=== PATIENT | female | born 1945 | race American Indian/Alaskan Native ===

== ENCOUNTER 2016-06-28 15:25 | Inpatient (IN) | payer MEDICARE ==
--- NOTE | 2016-06-28 17:16 | Emergency Department Report ---
ED Chest Pain HPI - General Chief Complaint: Chest Pain Stated Complaint: CHEST PAIN/FAVIAN Time Seen by Provider: 06/28/16 16:50 Source: patient, EMS, old records reviewed Mode of arrival: Stretcher Limitations: No Limitations - History of Present Illness Initial Comments: 71-year-old female with a past medical history of end-stage renal disease on dialysis, CAD with hx of 3 stents and triple bypass, CHF, diabetes, and elevated cholesterol presents to the hospital complains of chest pain while on dialysis. Patient had 55 minutes left of her dialysis and she developed sudden onset of sternal chest pressure. Positive associated shortness of breath. Denies nausea, vomiting, or diaphoresis. Pain moderate in intensity without aggravating or alleviating factors. Painl asted 20 minutes and then resolved when she arrived here to the ED. Patient denies receiving any medications prior to arrival. She states last week she had increased fluid and required an extra dialysis. Patient admits to a lot of soda intake and states she urinates approximately 10 times per day. PMD: Dr. Ming Mccauley cognos bi administrator: Dr. Barone animal care service worker: [facility] heart Previous medical record reviewed. Patient had a cardiac cath 2011. Negative stress test performed 11/2015. Patient was admitted here April 17 until 04/23 and it is recommended that she receive outpatient GI follow-up for possible inferior mesenteric ischemia at that time. Severity scale (0 -10): 5 - Related Data Previous Rx's Medication Instructions Recorded Last Taken Type Clopidogrel Bisulfate [Plavix] 75 mg PO DAILY #30 tablet 05/18/15 1 Day Ago Rx Esomeprazole Magnesium [NexIUM] 40 mg PO QDAY #30 capsule. 05/18/15 1 Day Ago Rx Hydralazine HCl [Apresoline TAB] 100 mg PO BID #90 tablet 05/29/15 1 Day Ago Rx NIFEdipine XL [Procardia Xl] 60 mg PO QDAY #30 tablet 05/29/15 1 Day Ago Rx AtorvaSTATin [Lipitor] 40 mg PO QHS #30 tablet 04/23/16 Unknown Rx Carvedilol [Coreg] 12.5 mg PO BID #60 tablet 04/23/16 Unknown Rx Lisinopril [Zestril TAB] 40 mg PO QDAY #30 tablet 04/23/16 Unknown Rx Allergies Allergy/AdvReac Type Severity Reaction Status Date / Time meperidine HCl [From Demerol] Allergy Vomiting Verified 06/05/14 05:59 JOVANNY score - Jovanny Score Age > 65: (1) Yes Aspirin use within the Past 7 Days: (1) Yes 3 or more CAD Risk Factors: (1) Yes 2 or more Angina events in past 24 hrs: (0) No Known CAD with more than 50% Stenosis: (1) Yes Elevated Cardiac Markers: (0) No ST Deviation Greater than 0.5mm: (0) No JOVANNY Score: 4 ED Review of Systems ROS: Stated complaint: CHEST PAIN/FAVIAN Other details as noted in HPI Comment: All other systems reviewed and negative Other: Constitutional: No fevers chills Eyes: No eye pain visual changes ENT: No ear pain or throat pain Neck: Denies pain Respiratory: Denies cough wheezing Cardiovascular: Denies palpitations, syncope GI: Denies abdominal pain, nausea, vomiting, diarrhea, : Denies dysuria Musculoskeletal: Denies back pain Skin: Denies rash, lesions, erythema Neurologic: Denies headache, numbness, weakness Psychiatric: Denies suicidal ideation, hallucinations ED Past Medical Hx - Past Medical History Hx Hypertension: Yes Hx Heart Attack/AMI: Yes Hx Congestive Heart Failure: No Hx Diabetes: Yes Hx Deep Vein Thrombosis: No Hx Pulmonary Embolism: No Hx GERD: Yes Hx Liver Disease: No Hx Renal Disease: No Hx Sickle Cell Disease: No Hx Arthritis: No Hx Headaches / Migraines: Yes Hx Seizures: No Hx Kidney Stones: No Hx Asthma: No Hx COPD: No Hx Tuberculosis: No Hx Dementia: No Additional medical history: high cholesterol - Surgical History Hx Coronary Stent: No Hx Open Heart Surgery: Yes (CABG 03/24/12) Hx Pacemaker: No Hx Internal Defibrillator: No Hx Cholecystectomy: Yes Additional Surgical History: tubal ligation. hysterectomy. graft - RUE - Social History Smoking Status: Never Smoker Substance Use Type: Marijuana - Medications Home Medications: Home Medications Medication Instructions Recorded Confirmed Last Taken Type Clopidogrel Bisulfate [Plavix] 75 mg PO DAILY #30 tablet 05/18/15 06/28/16 1 Day Ago Rx Esomeprazole Magnesium [NexIUM] 40 mg PO QDAY #30 capsule. 05/18/15 06/28/16 1 Day Ago Rx Hydralazine HCl [Apresoline TAB] 100 mg PO BID #90 tablet 05/29/15 06/28/16 1 Day Ago Rx NIFEdipine XL [Procardia Xl] 60 mg PO QDAY #30 tablet 05/29/15 06/28/16 1 Day Ago Rx AtorvaSTATin [Lipitor] 40 mg PO QHS #30 tablet 04/23/16 06/28/16 Unknown Rx Carvedilol [Coreg] 12.5 mg PO BID #60 tablet 04/23/16 06/28/16 Unknown Rx Lisinopril [Zestril TAB] 40 mg PO QDAY #30 tablet 04/23/16 06/28/16 Unknown Rx ED Physical Exam - General Limitations: No Limitations - Other Other exam information: General: No limitations, patient is alert in no acute distress Head exam: Atraumatic, normocephalic Eyes exam: Normal appearance, pupils equal reactive to light, extraocular movements intact ENT: Moist mucous membrane, normal oropharynx Neck exam: Normal inspection, full range of motion, no meningismus nontender Respiratory exam: Bibasal crackles, no tachypnea or accessory muscle use. Cardiovascular: Normal rate and rhythm, normal heart sounds Abdomen: Soft, nondistended, and nontender, with normal bowel sounds, no rebound, or guarding Extremity: Full range of motion normal inspection no deformity, no calf tenderness or edema Back: Normal Inspection, full range of motion, no tenderness Neurologic: Alert, oriented x3, cranial nerves intact, no motor or sensory deficit Psychiatric: normal affect, normal mood Skin: Warm, dry, intact ED Course Vital Signs 06/28/16 06/28/16 16:15 17:06 Temperature 97.9 F Pulse Rate 56 L Respiratory 16 18 Rate Blood Pressure 191/81 O2 Sat by Pulse 100 99 Oximetry - Reevaluation(s) Reevaluation #1: 06/28/16 18:29 pt stable in ed without recurrent cp - Consultations Consultation #1: 06/28/16 18:29 dr lopez consulted. will f/u Consultation #2: 06/28/16 18:34 Reid consulted (nephrology) Will arrange for dialysis during hospitalization ED Medical Decision Making - Lab Data Result diagrams: 06/28/16 17:05 06/28/16 17:05 Lab Results 06/28/16 06/28/16 06/28/16 Range/Units 16:54 17:05 17:05 WBC 5.1 (4.5-11.0) K/mm3 RBC 3.77 (3.65-5.03) M/mm3 Hgb 10.3 (10.1-14.3) gm/dl Hct 32.6 (30.3-42.9) % MCV 87 (79-97) fl MCH 27 L (28-32) pg MCHC 32 (30-34) % RDW 21.1 H (13.2-15.2) % Plt Count 115 L (140-440) K/mm3 Lymph % (Auto) 28.7 (13.4-35.0) % Wilkin % (Auto) 8.3 H (0.0-7.3) % Eos % (Auto) 3.7 (0.0-4.3) % Baso % (Auto) 0.9 (0.0-1.8) % Lymph # 1.5 (1.2-5.4) K/mm3 Wilkin # 0.4 (0.0-0.8) K/mm3 Eos # 0.2 (0.0-0.4) K/mm3 Baso # 0.0 (0.0-0.1) K/mm3 Seg Neutrophils % 58.4 (40.0-70.0) % Seg Neutrophils # 3.0 (1.8-7.7) K/mm3 Sodium 144 (137-145) mmol/L Potassium 4.3 (3.6-5.0) mmol/L Chloride 97.5 L (98-107) mmol/L Carbon Dioxide 28 (22-30) mmol/L Anion Gap 23 mmol/L BUN 33 H (7-17) mg/dL Creatinine 8.2 H (0.7-1.2) mg/dL Estimated GFR 6 ml/min BUN/Creatinine Ratio 4.02 % Glucose 141 H (65-100) mg/dL POC Glucose 161 H (70-105) Calcium 8.2 L (8.4-10.2) mg/dL Troponin T 0.087 H (0.00-0.029) ng/mL Triglycerides 114 (2-149) mg/dL Cholesterol 171 (50-199) mg/dL LDL Cholesterol Direct 111 (50-130) mg/dL HDL Cholesterol 38 L (40-59) mg/dL Cholesterol/HDL Ratio 4.50 % - EKG Data -: EKG Interpreted by Me (sinus 56 lateral T wave inversions inferior Q) - EKG Data When compared to previous EKG there are: no significant change (compared to ) - Radiology Data Radiology results: image reviewed (cxr: r pleural effusion (since mar 2016 per record review)) - Medical Decision Making Plans admit to the hospital due to chest pain, shortness of breath. Nephrology and cardiology consult - Differential Diagnosis CHF, NH, unstable angina, atypical chest pain Critical Care Time: No Critical care attestation.: If time is entered above; I have spent that time in minutes in the direct care of this critically ill patient, excluding procedure time. ED Disposition Clinical Impression: End stage renal failure on dialysis, Acute chest pain, Pleural effusion, right , HTN (hypertension), S/P CABG x 3, H/O heart artery stent Disposition: OP ADMITTED IP TO THIS HOSP Is pt being admited?: Yes Does the pt Need Aspirin: Yes Condition: Stable Time of Disposition: 18:20 (Dr Menendez/hosp)
[2016-06-28 17:35] LABS: Basophils % (Auto) 0.9 % (0.0-1.8); Eosinophils % (Auto) 3.7 % (0.0-4.3); Hematocrit 32.6 % (30.3-42.9); Hemoglobin 10.3 gm/dl (10.1-14.3); Mean Corpuscular HGB Conc 32 % (30-34); Mean Corpuscular Hemoglobin 27 pg (28-32); Mean Corpuscular Volume 87 fl (79-97); Platelet Count 115 K/mm3 (140-440); Red Blood Count 3.77 M/mm3 (3.65-5.03); White Blood Count 5.1 K/mm3 (4.5-11.0)
[2016-06-28 17:39] LABS: BUN/Creatinine Ratio 4.02; Calcium 8.2 mg/dL (8.4-10.2); Chloride 97.5 mmol/L (98-107); Potassium 4.3 mmol/L (3.6-5.0)
[2016-06-28 17:43] LABS: Red Cell Distribution Width 21.1 % (13.2-15.2)
[2016-06-28] MEDS ORDERED: ASPIRIN PO ONE (18:21)
--- NOTE | 2016-06-28 18:25 | Admit Criteria Form ---
Admission Criteria Documentation: CHEST PAIN Clinical Indications for Admission to Inpatient Care (Place 'X' for any and all applicable criteria): Admission is indicated for chest pain and ANY ONE of the following(1)(2)(3)(4)(5 ): []I. Angina with acute coronary syndrome (Also use Myocardial Infarction or Angina guideline) [ ]II. Hemodynamic instability [X]III. Angina needing acute intervention as indicated by ALL of the following( 11)(12): [X]a) Unstable angina is present as indicated by angina that is ANY ONE of the following: [ ]i) New onset [ ]ii) Nocturnal [X]iii) Prolonged at rest [ ]iv) Progressive [X]b) Angina warrants acute intervention as indicated by ANY ONE of the following: [ ]i) Recurrent angina (e.g, not responding as previously to treatment) [ ]ii) Angina at rest or with low-level activities despite initial medical therapy [ ]iii) New or presumably new ST-segment depression on ECG [ ]iv) Signs or symptoms of heart failure (eg, dyspnea, pulmonary edema) [ ]v) New or worsening mitral regurgitation [ ]vi) Hemodynamic instability [ ]vii) Dangerous arrhythmia (eg, sustained ventricular tachycardia) [ ]viii) History of percutaneous coronary intervention within 6 months [ ]ix) History of coronary artery bypass graft surgery [X]x) CHON risk score of 2 or greater[A] [X]xi) History of Diabetes(14) [ ]xii) High-risk cardiac ischemia findings on noninvasive testing (e.g, echocardiogram, treadmill testing, nuclear scan) [X]xiii) Chronic renal insufficiency (ie, estimated GFR less than 60 mL/min/1.732m) [ ]xiv) Left ventricular ejection fraction less than 40% [X]IV. Evidence of TX (eg, cardiac biomarkers positive, ST-segment elevation on ECG) also use Myocardial Infarction Criteria Form. [ ]V. Pulmonary edema [ ]. Respiratory distress [ ]VII. Chest pain indicative of serious diagnosis other than coronary artery disease (eg, aortic dissection) [ ]VIII. Contraindications and/or Inappropriate clinical situations for Observational Care in patients with Chest Pain, when ANY ONE of the following is required: [ ]a) Patient with risk factor for pulmonary embolism, acute coronary syndrome and myocardial infarction (18) [ ]b) Patient with Pulmonary embolism require an average LOS of 4.3 days, therefore emergency department observation management is inappropriate 18,23 [ ]c) Painful condition/s in the elderly, have the highest rate of recidivism after emergency department observation management (10.8%) 20,21,22 [ ]d) Elevated cardiac biomarker requires intensive and exhaustive care (19) [ ]IX. General contraindications and/or Inappropriate clinical situations for Observational Care in patients with Chest Pain, when ANY ONE of the following is required: [ ]a) Prediction of prolongation of LOS based on ANY ONE of the following may be considered as a contraindication for observational care 2, 3, 4, 5, 6, 7, 8, 9, 10, 11 [ ]i) Age > 65 yrs. [ ]ii) Patient arriving by ambulance [ ]iii) Patient with high acuity [ ]iv) Patient requiring vital sign monitoring [ ]v) Patient on IV medication [ ]b) Systolic blood pressures 180mmHg 3,12 [ ]c) Patient with altered mental status including delirium and other alteration of consciousness, (3) [ ]d) Patient whose discharge disposition will be to a nursing home home or rehabilitation home should not be managed in Emergency Department Observation Unit. CMS rule requires 3 days hospital stay before such placement. 3,13 [ ]e) Patient with failure to thrive due to broad array of etiologies 3,16,17 [ ]f) Inability to ambulate 3,14 Extended stay beyond goal length of stay may be needed for (1)(28): [ ]a) Specific condition diagnosed after evaluation (eg, pulmonary embolism, aortic dissection) [ ]b) Unstable angina [ ]c) Continued suspicion of acute coronary syndrome with inability to complete needed cardiac evaluation (eg, patient clinically unable to undergo stress testing) [ ]d) Myocardial infarction (Contents from ANGINA and CHEST PAIN clinical indications for admission to inpatient care have been integrated in this form) The original [employer] content created by [employer] has been revised. The portions of the content which have been revised are identified through the use of italic text or in bold, and [facility] has neither reviewed nor approved the modified material. All other unmodified content is copyright [facility]. Please see references footnoted in the original [employer] edition 2016 Admission Criteria Met: Yes
[2016-06-28] MEDS: COREG PO SCH (22:59)
--- NOTE | 2016-06-29 08:03 | Event Note ---
Date: 06/28/16 See H/p in reports CP-r/o CA
--- NOTE | 2016-06-29 08:58 | History and Physical Report ---
CHIEF COMPLAINT: Chest pain while at dialysis. HISTORY OF PRESENT ILLNESS: A 71-year-old female with extensive past medical history of end-stage renal disease, coronary artery disease with triple bypass and three stents, CHF, diabetes, and hyperlipidemia, who comes in for chest pain while on dialysis. The patient had 55 minutes left on her dialysis when she developed sudden onset of substernal chest pain associated with shortness of breath. Chest pain is about 5 on a scale of 1-10. Chest pain lasted for about 20 minutes. Did not get any nitroglycerin, etc. prior to arrival. The patient had cardiac catheterization in 2011, negative stress test in November 2015. The patient was admitted as recently as 04/17/2016 to 04/23/2016 and was advised to follow up for inferior mesenteric ischemia at that time. PAST MEDICAL HISTORY: As mentioned, coronary artery disease; gastroesophageal reflux disease; hypertension; and hyperlipidemia. PAST SURGICAL HISTORY: Coronary artery bypass graft. Coronary stents x 3. Cholecystectomy. Tubal ligation, hysterectomy, right upper extremity graft. SOCIAL HISTORY: Does not smoke, marijuana on an intermittent basis. FAMILY HISTORY: Significant for hypertension. CURRENT MEDICATIONS: Plavix 75 mg daily, Nexium 40 mg p.o. daily, hydralazine 100 mg p.o. b.i.d., Procardia 60 mg p.o. daily, atorvastatin 40 mg p.o. daily, Coreg 12.5 mg p.o. b.i.d., and lisinopril 40 mg p.o. daily. REVIEW OF SYSTEMS: Significant for left-sided chest pain. No shortness of breath. Otherwise, 14-point review of systems is essentially negative. All systems reviewed. PHYSICAL EXAMINATION: GENERAL: Elderly female, cooperative during examination. VITAL SIGNS: Blood pressure 191/81, temperature 97.9, pulse is 56, respirations are 16, sats are 100%. HEENT: Unremarkable. Pupils equal and reactive. NECK: Supple, no lymphadenopathy, no thyromegaly. No carotid artery bruit. LUNGS: Clear to auscultation and percussion. Good air entry. CARDIOVASCULAR: S1, S2 heard. No gallop, no murmur, no rub. Apical impulse in left fifth intercostal space and midclavicular line. ABDOMEN: Soft and benign. No hepatosplenomegaly. No guarding, no rigidity. EXTREMITIES: Right upper extremity AV shunt still present. CENTRAL NERVOUS SYSTEM: Alert and oriented x 4, nonfocal exam. SKIN: Normal. LABORATORY DATA: EKG shows heart rate of 56, T-wave inversions in inferior leads. No significant changes compared to 04/18/2016. EKG interpreted by me. Chest x-ray: Pleural effusions, no interval change. A lab significant for white count of 5100, hemoglobin is 10.3 and hematocrit is 32.6, platelet count is 115,000. Sodium is 144, potassium is 4.3, BUN and creatinine of 33 and 8.2. Troponins are 0.089 and 0.076. ASSESSMENT AND PLAN: 1. Chest pain versus acute coronary syndrome. The patient has extensive history of coronary artery disease. Last stress test in November 2015 was negative. I do not expect any change in the stress test, but will get a stress test. Defer to Cardiology for possible cath. 2. End-stage renal disease, on dialysis. Continue dialysis. Dr. Mathews, Nephrology is consulted. 3. Coronary artery disease. [facility] consulted. Continue Plavix. 4. Hypertension. Continue nifedipine 60 mg once a day, Coreg 12.5 mg twice a day, lisinopril 40 mg once a day. 5. Gastroesophageal reflux disease. Continue Nexium 40 mg p.o. daily. 6. DVT prophylaxis, heparin ordered. In summary, the patient has chest pain, rule out myocardial infarction protocol. Possible cath if necessary. We will defer to Cardiology. Lexiscan ordered. Troponins were high, but the patient also has end-stage renal disease which can account for high troponins. JOB# [id number] EH/NORM
[2016-06-29] MEDS: PLAVIX PO SCH (09:00)
[2016-06-29] MEDS: APRESOLINE PO SCH ×2 (09:00→21:37)
[2016-06-29] MEDS ORDERED: SODIUM CHLORIDE FLUSH SYRINGE 10 ML IV PRN (09:00)
[2016-06-29] MEDS: COREG PO SCH ×2 (09:00→21:37)
[2016-06-29] MEDS: PROCARDIA XL PO SCH (09:00)
[2016-06-29] MEDS: PROTONIX PO SCH (09:01)
[2016-06-29] MEDS: LOVENOX SUB-Q SCH (09:01)
[2016-06-29] MEDS: ZESTRIL PO SCH (09:01)
--- NOTE | 2016-06-29 10:32 | XRay Report ---
CHEST 2 VIEWS: Compared to 04/17/16. HISTORY: Shortness of breath, chest pain. FINDINGS: Cardiomegaly. Trachea is midline. Right pleural effusion without significant interval change. IMPRESSION: No significant interval change.
--- NOTE | 2016-06-29 10:49 | Consultation ---
History of Present Illness Consult date: 06/29/16 Consult reason: chest pain History of present illness: Patient is a 71yr old female admitted for chest pain during HD yesterday. Her presenting ECG shows a sinus rhythm with Twave abnomalities and LVH. No significant change from prior ECG. Lab values resulted a troponin of 0.08 likely in the setting of renal disease. Cardiology consultation requested for chest pain. Patient has a cardiac history of CAD s/p 3 way CABG late 2011. The is a WHITE graft to the LAD, SVG to ALOM and SVG to RCA. Patient reports she follows with Dr Keating with [facility] on a regular basis. 6 months ago she had a persantine stress thallium that showed no ischemia. An echocardiogram done 3 months ago reports an ejection fraction 45-50%. Medications and Allergies Allergies Allergy/AdvReac Type Severity Reaction Status Date / Time meperidine HCl [From Demerol] Allergy Vomiting Verified 06/05/14 05:59 Home Medications Medication Instructions Recorded Confirmed Last Taken Type Clopidogrel Bisulfate [Plavix] 75 mg PO DAILY #30 tablet 05/18/15 06/28/16 1 Day Ago Rx Esomeprazole Magnesium [NexIUM] 40 mg PO QDAY #30 capsule. 05/18/15 06/28/16 1 Day Ago Rx Hydralazine HCl [Apresoline TAB] 100 mg PO BID #90 tablet 05/29/15 06/28/16 1 Day Ago Rx NIFEdipine XL [Procardia Xl] 60 mg PO QDAY #30 tablet 05/29/15 06/28/16 1 Day Ago Rx AtorvaSTATin [Lipitor] 40 mg PO QHS #30 tablet 04/23/16 06/28/16 Unknown Rx Carvedilol [Coreg] 12.5 mg PO BID #60 tablet 04/23/16 06/28/16 Unknown Rx Lisinopril [Zestril TAB] 40 mg PO QDAY #30 tablet 04/23/16 06/28/16 Unknown Rx Active Meds: Active Medications Atorvastatin Calcium (Lipitor) [address] [facility] Carvedilol (Coreg) 12.[address] [facility] Last Admin: 06/29/16 09:00 Dose: 12.5 mg Clopidogrel Bisulfate (Plavix) [address] [facility] Last Admin: 06/29/16 09:00 Dose: 75 mg Enoxaparin Sodium (Lovenox) 30 mg SUB-Q QDAY [facility] Last Admin: 06/29/16 09:01 Dose: 30 mg Hydralazine HCl (Apresoline) [address] [facility] Last Admin: 06/29/16 09:00 Dose: 100 mg Hydralazine HCl (Apresoline) 20 mg IV Q4H PRN PRN Reason: Hypertension Lisinopril (Zestril) [address] [facility] Last Admin: 06/29/16 09:01 Dose: 40 mg Nifedipine (Procardia Xl) 60 mg PO QDAY@0800 [facility] Last Admin: 06/29/16 09:00 Dose: 60 mg Pantoprazole Sodium (Protonix) [address] [facility] Last Admin: 06/29/16 09:01 Dose: 40 mg Sodium Chloride (Sodium Chloride Flush Syringe 10 Ml) 10 ml IV PRN PRN PRN Reason: LINE FLUSH Physical Examination Vital Signs Temp Pulse Resp BP Pulse Ox 97.9 F 56 L 16 191/81 100 06/28/16 16:15 06/28/16 16:15 06/28/16 16:15 06/28/16 16:15 06/28/16 16:15 General appearance: no acute distress HEENT: Positive: PERRL Neck: Positive: trachea midline Cardiac: Positive: Reg Rate and Rhythm Lungs: Positive: Decreased Breath Sounds Results 06/28/16 17:05 06/28/16 17:05 Cardiac Enzymes 06/28/16 06/28/16 Range/Units 19:53 23:17 Troponin T 0.089 H 0.076 H (0.00-0.029) ng/mL EKG interpretations - Telemetry EKG Rhythm: Sinus Rhythm Assessment and Plan Chest pain during HD History of CAD s/p CABG 2011. follows with Dr Keating at [facility] No ischemia by MPI 11/2015 Non-specific troponin ESRD on HD Systemic Hypertension Type II DM Echo done 05/2016 reports a LVEF 45-50%, but more significantly there was moderate mitral regurgitation, moderate to severe tricuspid regurgitation and severe pulmonary hypertension with pulmonary artery systolic pressure of 67 mmHg. Conservative cardiac management.
[2016-06-29 10:53] LABS: Creatine Kinase MB 2.6 ng/mL (0.0-4.0)
[2016-06-29] MEDS: NITRO-BID 2% TP SCH (13:01)
[2016-06-29] MEDS: TYLENOL PO PRN (13:02)
--- NOTE | 2016-06-29 13:47 | Consultation ---
History of Present Illness - Reason for Consult Consult date: 06/29/16 end stage renal disease Requesting physician: PEDRO VANEGAS - History of Present Illness 71-year-old female with a past medical history of end-stage renal disease on dialysis, CAD with hx of 3 stents and triple bypass, CHF, diabetes, and elevated cholesterol presents to the hospital complains of chest pain while on dialysis. Patient had 55 minutes left of her dialysis and she developed sudden onset of sternal chest pressure. Positive associated shortness of breath. Denies nausea, vomiting, or diaphoresis. Pain moderate in intensity without aggravating or alleviating factors. Painl asted 20 minutes and then resolved when she arrived here to the ED. Patient denies receiving any medications prior to arrival. She states last week she had increased fluid and required an extra dialysis. Patient admits to a lot of soda intake and states she urinates approximately 10 times per day. PMD: Dr. Ming Mccauley cheese sprayer: Dr. Barone accounts supervisor: [facility] Previous medical record reviewed. Patient had a cardiac cath 2011. Negative stress test performed 11/2015. Patient was admitted here April 17 until 04/23 and it is recommended that she receive outpatient GI follow-up for possible inferior mesenteric ischemia at that time. Previous Rx's Medication Instructions Recorded Last Taken Type Clopidogrel Bisulfate [Plavix] 75 mg PO DAILY #30 tablet 05/18/15 1 Day Ago Rx Esomeprazole Magnesium [NexIUM] 40 mg PO QDAY #30 capsule. 05/18/15 1 Day Ago Rx Hydralazine HCl [Apresoline TAB] 100 mg PO BID #90 tablet 05/29/15 1 Day Ago Rx NIFEdipine XL [Procardia Xl] 60 mg PO QDAY #30 tablet 05/29/15 1 Day Ago Rx AtorvaSTATin [Lipitor] 40 mg PO QHS #30 tablet 04/23/16 Unknown Rx Carvedilol [Coreg] 12.5 mg PO BID #60 tablet 04/23/16 Unknown Rx Lisinopril [Zestril TAB] 40 mg PO QDAY #30 tablet 04/23/16 Unknown Rx Allergies Allergy/AdvReac Type Severity Reaction Status Date / Time meperidine HCl [From Demerol] Allergy Vomiting Verified 06/05/14 05:59 ROS: Stated complaint: CHEST PAIN/FAVIAN Other details as noted in HPI Comment: All other systems reviewed and negative Other: Constitutional: No fevers chills Eyes: No eye pain visual changes ENT: No ear pain or throat pain Neck: Denies pain Respiratory: Denies cough wheezing Cardiovascular: Denies palpitations, syncope GI: Denies abdominal pain, nausea, vomiting, diarrhea, : Denies dysuria Musculoskeletal: Denies back pain Skin: Denies rash, lesions, erythema Neurologic: Denies headache, numbness, weakness Psychiatric: Denies suicidal ideation, hallucinations - Past Medical History Hx Hypertension: Yes Hx Heart Attack/AMI: Yes Hx Congestive Heart Failure: No Hx Diabetes: Yes Hx Deep Vein Thrombosis: No Hx Pulmonary Embolism: No Hx GERD: Yes Hx Liver Disease: No Hx Renal Disease: No Hx Sickle Cell Disease: No Hx Arthritis: No Hx Headaches / Migraines: Yes Hx Seizures: No Hx Kidney Stones: No Hx Asthma: No Hx COPD: No Hx Tuberculosis: No Hx Dementia: No Additional medical history: high cholesterol - Surgical History Hx Coronary Stent: No Hx Open Heart Surgery: Yes (CABG 03/24/12) Hx Pacemaker: No Hx Internal Defibrillator: No Hx Cholecystectomy: Yes Additional Surgical History: tubal ligation. hysterectomy. graft - RUE - Social History Smoking Status: Never Smoker Substance Use Type: Marijuana - Medications Home Medications: Home Medications Medication Instructions Recorded Confirmed Last Taken Type Clopidogrel Bisulfate [Plavix] 75 mg PO DAILY #30 tablet 05/18/15 06/28/16 1 Day Ago Rx Esomeprazole Magnesium [NexIUM] 40 mg PO QDAY #30 capsule. 05/18/15 06/28/16 1 Day Ago Rx Hydralazine HCl [Apresoline TAB] 100 mg PO BID #90 tablet 05/29/15 06/28/16 1 Day Ago Rx NIFEdipine XL [Procardia Xl] 60 mg PO QDAY #30 tablet 05/29/15 06/28/16 1 Day Ago Rx AtorvaSTATin [Lipitor] 40 mg PO QHS #30 tablet 04/23/16 06/28/16 Unknown Rx Carvedilol [Coreg] 12.5 mg PO BID #60 tablet 04/23/16 06/28/16 Unknown Rx Lisinopril [Zestril TAB] 40 mg PO QDAY #30 tablet 04/23/16 06/28/16 Unknown Rx Medications and Allergies Allergies Allergy/AdvReac Type Severity Reaction Status Date / Time meperidine HCl [From Demerol] Allergy Vomiting Verified 06/05/14 05:59 Home Medications Medication Instructions Recorded Confirmed Last Taken Type Clopidogrel Bisulfate [Plavix] 75 mg PO DAILY #30 tablet 05/18/15 06/28/16 1 Day Ago Rx Esomeprazole Magnesium [NexIUM] 40 mg PO QDAY #30 capsule. 05/18/15 06/28/16 1 Day Ago Rx Hydralazine HCl [Apresoline TAB] 100 mg PO BID #90 tablet 05/29/15 06/28/16 1 Day Ago Rx NIFEdipine XL [Procardia Xl] 60 mg PO QDAY #30 tablet 05/29/15 06/28/16 1 Day Ago Rx AtorvaSTATin [Lipitor] 40 mg PO QHS #30 tablet 04/23/16 06/28/16 Unknown Rx Carvedilol [Coreg] 12.5 mg PO BID #60 tablet 04/23/16 06/28/16 Unknown Rx Lisinopril [Zestril TAB] 40 mg PO QDAY #30 tablet 04/23/16 06/28/16 Unknown Rx Active Meds: Active Medications Acetaminophen (Tylenol) 650 mg PO Q4H PRN PRN Reason: Pain, Mild (1-3) Last Admin: 06/29/16 13:02 Dose: 650 mg Atorvastatin Calcium (Lipitor) 40 mg PO QHS [facility] Carvedilol (Coreg) 12.5 mg PO BID [facility] Last Admin: 06/29/16 09:00 Dose: 12.5 mg Clopidogrel Bisulfate (Plavix) 75 mg PO DAILY [facility] Last Admin: 06/29/16 09:00 Dose: 75 mg Enoxaparin Sodium (Lovenox) 30 mg SUB-Q QDAY [facility] Last Admin: 06/29/16 09:01 Dose: 30 mg Hydralazine HCl (Apresoline) 100 mg PO BID [facility] Last Admin: 06/29/16 09:00 Dose: 100 mg Hydralazine HCl (Apresoline) 20 mg IV Q4H PRN PRN Reason: Hypertension Lisinopril (Zestril) 40 mg PO QDAY [facility] Last Admin: 06/29/16 09:01 Dose: 40 mg Nifedipine (Procardia Xl) 60 mg PO QDAY@0800 [facility] Last Admin: 06/29/16 09:00 Dose: 60 mg Nitroglycerin (Nitro-Bid 2%) 0.5 inch TP BIDNTG [facility] PRN Reason: Protocol Last Admin: 06/29/16 13:01 Dose: 0.5 inch Pantoprazole Sodium (Protonix) 40 mg PO DAILY [facility] Last Admin: 06/29/16 09:01 Dose: 40 mg Sodium Chloride (Sodium Chloride Flush Syringe 10 Ml) 10 ml IV PRN PRN PRN Reason: LINE FLUSH Exam - Vital Signs Vital signs: Vital Signs Temp Pulse Resp BP Pulse Ox 97.9 F 56 L 16 191/81 100 06/28/16 16:15 06/28/16 16:15 06/28/16 16:15 06/28/16 16:15 06/28/16 16:15 - Physical Exam Narrative exam: General: No limitations, patient is alert in no acute distress Head exam: Atraumatic, normocephalic Eyes exam: Normal appearance, pupils equal reactive to light, extraocular movements intact ENT: Moist mucous membrane, normal oropharynx Neck exam: Normal inspection, full range of motion, no meningismus nontender Respiratory exam: Bibasal crackles, no tachypnea or accessory muscle use. Cardiovascular: Normal rate and rhythm, normal heart sounds Abdomen: Soft, nondistended, and nontender, with normal bowel sounds, no rebound, or guarding Extremity: Full range of motion normal inspection no deformity, no calf tenderness or edema Back: Normal Inspection, full range of motion, no tenderness Neurologic: Alert, oriented x3, cranial nerves intact, no motor or sensory deficit Psychiatric: normal affect, normal mood Skin: Warm, dry, intact Results - Lab Results 06/28/16 17:05 06/28/16 17:05 Most recent lab results Calcium 8.2 mg/dL (8.4-10.2) L 06/28/16 17:05 Assessment and Plan Impression: * esrd * chest pain * cad * acc htn * anemia in esrd * dm type 2 Plan: * dialysis q tthsat * uf with hd as tolerated * resume home meds * cards recs noted * lytes prn * strict i/os * dialysis diet * stable for dc from renal standpoint if ok with cards
[2016-06-29] MEDS ORDERED: NACL 0.9% 1000 ML 100 ML IV PRN (13:49)
[2016-06-29 16:13] LABS: Creatine Kinase MB 2.7 ng/mL (0.0-4.0)
[2016-06-29] MEDS ORDERED: IMODIUM PO PRN (16:56)
--- NOTE | 2016-06-29 16:56 | Progress Note ---
Assessment and Plan Assessment and plan: Patient is a 71-year-old female with extensive past medical history of end- stage renal disease CAD nipple vessel bypass and 3 stents, CHF diabetes hyperlipidemia who presents to the hospital with complaints of recurrent hypertension uncontrolled and substernal chest pain associated with dialysis. She also unfortunately admits to dietary indiscretion. * Atypical chest pain likely hypertensive induced * End-stage renal disease * Hypertensive urgency * Anemia of chronic disease * Diabetes type 2 * Chronic troponin elevation * Stable chronic congestive heart failure last known EF 45-50% with moderate mitral regurgitation, moderate to severe tricuspid regurgitation and severe pulmonary hypertension * Pulmonary hypertension-severe * Neck diarrhea Plan * Continue antihypertensives will add hydralazine IV * Dietary education * Continue hemodialysis per center maker hand * Neurologic input appreciated * We'll monitor overnight. If needed will readjust blood pressure medications * Tylenol * Imodium when necessary for chronic diarrhea * Continue diabetic control * DVT and GI prophylaxis * Plan discussed with the patient and also with magazine repairer History Interval history: Follow-up chest pain, Patient seen and examined this morning in no acute distress [place] recurrent chest pain with nausea no vomiting or diarrhea also reports recurrent headaches all chronic No fever noted blood pressure controlled No adverse events reported to me by nursing staff Hospitalist Physical - Physical exam Narrative exam: VITAL SIGNS: Reviewed. GENERAL: The patient appeared well nourished and normally developed. Vital signs as documented. HEAD: No signs of head trauma. EYES: Pupils are equal. Extraocular motions intact. EARS: Hearing grossly intact. MOUTH: Oropharynx is normal. NECK: No adenopathy, no JVD. CHEST: Chest with clear breath sounds bilaterally. No wheezes, rales, or rhonchi. CARDIAC: Regular rate and rhythm. S1 and S2, without murmurs, gallops, or rubs. VASCULAR: No Edema. Peripheral pulses normal and equal in all extremities. ABDOMEN: Soft, without detectable tenderness. No sign of distention. No rebound or guarding, and no masses palpated. Bowel Sounds normal. MUSCULOSKELETAL: Good range of motion of all major joints. Extremities without clubbing, cyanosis or edema. NEUROLOGIC EXAM: Alert and oriented x 3. No focal sensory or strength deficits. Speech normal. Follows commands. PSYCHIATRIC: Mood normal. SKIN: No rash or lesions. - Constitutional Vitals: Temp Pulse Resp BP Pulse Ox 97.6 F 58 L 20 153/69 96 06/29/16 11:40 06/29/16 12:49 06/29/16 11:40 06/29/16 11:40 06/29/16 11:40 General appearance: Present: no acute distress Results - Labs CBC & Chem 7: 06/28/16 17:05 06/28/16 17:05 Labs: Laboratory Last Values WBC 5.1 K/mm3 (4.5-11.0) 06/28/16 17:05 RBC 3.77 M/mm3 (3.65-5.03) 06/28/16 17:05 Hgb 10.3 gm/dl (10.1-14.3) 06/28/16 17:05 Hct 32.6 % (30.3-42.9) 06/28/16 17:05 MCV 87 fl (79-97) 06/28/16 17:05 MCH 27 pg (28-32) L 06/28/16 17:05 MCHC 32 % (30-34) 06/28/16 17:05 RDW 21.1 % (13.2-15.2) H 06/28/16 17:05 Plt Count 115 K/mm3 (140-440) L 06/28/16 17:05 Lymph % (Auto) 28.7 % (13.4-35.0) 06/28/16 17:05 [place] % (Auto) 8.3 % (0.0-7.3) H 06/28/16 17:05 Eos % (Auto) 3.7 % (0.0-4.3) 06/28/16 17:05 Baso % (Auto) 0.9 % (0.0-1.8) 06/28/16 17:05 Lymph # 1.5 K/mm3 (1.2-5.4) 06/28/16 17:05 [place] # 0.4 K/mm3 (0.0-0.8) 06/28/16 17:05 Eos # 0.2 K/mm3 (0.0-0.4) 06/28/16 17:05 Baso # 0.0 K/mm3 (0.0-0.1) 06/28/16 17:05 Seg Neutrophils % 58.4 % (40.0-70.0) 06/28/16 17:05 Seg Neutrophils # 3.0 K/mm3 (1.8-7.7) 06/28/16 17:05 Sodium 144 mmol/L (137-145) 06/28/16 17:05 Potassium 4.3 mmol/L (3.6-5.0) 06/28/16 17:05 Chloride 97.5 mmol/L (98-107) L 06/28/16 17:05 Carbon Dioxide 28 mmol/L (22-30) 06/28/16 17:05 Anion Gap 23 mmol/L 06/28/16 17:05 BUN 33 mg/dL (7-17) H 06/28/16 17:05 Creatinine 8.2 mg/dL (0.7-1.2) H 06/28/16 17:05 Estimated GFR 6 ml/min 06/28/16 17:05 BUN/Creatinine Ratio 4.02 % 06/28/16 17:05 Glucose 141 mg/dL (65-100) H 06/28/16 17:05 POC Glucose 161 (70-105) H 06/28/16 16:54 Calcium 8.2 mg/dL (8.4-10.2) L 06/28/16 17:05 Total Creatine Kinase 108 units/L (30-135) 06/29/16 14:44 CK-MB (CK-2) 2.7 ng/mL (0.0-4.0) 06/29/16 14:44 CK-MB (CK-2) Rel Index 2.5 (0-4) 06/29/16 14:44 Troponin T 0.076 ng/mL (0.00-0.029) H 06/28/16 23:17 Triglycerides 114 mg/dL (2-149) 06/28/16 17:05 Cholesterol 171 mg/dL (50-199) 06/28/16 17:05 LDL Cholesterol Direct 111 mg/dL (50-130) 06/28/16 17:05 HDL Cholesterol 38 mg/dL (40-59) L 06/28/16 17:05 Cholesterol/HDL Ratio 4.50 % 06/28/16 17:05 - Imaging and Cardiology Chest x-ray: image reviewed (no acute pathology)
[2016-06-30] MEDS ORDERED: AMBIEN PO SCH (00:07)
[2016-06-30] MEDS: APRESOLINE IV PRN ×2 (00:39→06:16)
[2016-06-30] MEDS: NITRO-BID 2% TP SCH ×2 (05:34→14:00)
[2016-06-30] MEDS: TYLENOL PO PRN (08:00)
--- NOTE | 2016-06-30 08:27 | Progress Note ---
Assessment and Plan Impression: * esrd * chest pain * cad * acc htn * anemia in esrd * dm type 2 Plan: * dialysis q tthsat * uf with hd as tolerated * resume home meds * cards recs noted * lytes prn * strict i/os * dialysis diet * stable for dc from renal standpoint if ok with cards Subjective Date of service: 06/30/16 Principal diagnosis: esrd Interval history: no new events today, resting well Objective - Exam Narrative Exam: General: No limitations, patient is alert in no acute distress Head exam: Atraumatic, normocephalic Eyes exam: Normal appearance, pupils equal reactive to light, extraocular movements intact ENT: Moist mucous membrane, normal oropharynx Neck exam: Normal inspection, full range of motion, no meningismus nontender Respiratory exam: Bibasal crackles, no tachypnea or accessory muscle use. Cardiovascular: Normal rate and rhythm, normal heart sounds Abdomen: Soft, nondistended, and nontender, with normal bowel sounds, no rebound, or guarding Extremity: Full range of motion normal inspection no deformity, no calf tenderness or edema Back: Normal Inspection, full range of motion, no tenderness Neurologic: Alert, oriented x3, cranial nerves intact, no motor or sensory deficit Psychiatric: normal affect, normal mood Skin: Warm, dry, intact - Vital Signs Vital signs: Vital Signs - 12hr 06/29/16 06/29/16 06/30/16 21:34 23:11 00:32 Temperature 98.3 F 98.2 F Pulse Rate [ 68 Left] Pulse Rate [ 68 Right Radial] Respiratory 18 18 Rate Blood Pressure 180/81 193/79 [Left Arm] O2 Sat by Pulse 94 98 95 Oximetry 06/30/16 06/30/16 01:48 04:35 Temperature 97.5 F L Pulse Rate [ 72 Left] Pulse Rate [ Right Radial] Respiratory 20 Rate Blood Pressure 158/80 184/77 [Left Arm] O2 Sat by Pulse 94 Oximetry - Lab 06/28/16 17:05 06/28/16 17:05 Most recent lab results Calcium 8.2 mg/dL (8.4-10.2) L 06/28/16 17:05
--- NOTE | 2016-06-30 09:14 | Discharge Summary ---
Providers - Providers Date of Admission: 06/28/16 18:21 Date of discharge: 06/30/16 Attending physician: VASQUEZ ESPARZA MD 06/28/16 18:29 Consult to Physician [CONS] Urgent Consulting Provider: MELISSA LEGGETT Reason For Exam: cp, cad, esrd Notified:: y 06/28/16 18:33 Consult to Physician [CONS] Urgent Consulting Provider: JOHANN MAHONEY Reason For Exam: esrd on dialysis, r pleural effusion Notified:: y 06/29/16 Consult to Cardiac Rehabilitation [CONS] Routine Reason For Exam: Phase I Primary care physician: BROADLOOM WEAVER Hospitalization Reason for admission: chest pain Condition: Stable Hospital course: Patient is a 71-year-old female with extensive past medical history of end- stage renal disease CAD nipple vessel bypass and 3 stents, CHF diabetes hyperlipidemia who presents to the hospital with complaints of recurrent hypertension uncontrolled and substernal chest pain associated with dialysis. She also unfortunately admits to dietary indiscretion. Patient on admission was seen by photo equipment technician continued dialysis with no adverse events. Was also seen by cardiology noted to have chronic intermittent chest pain. The troponin is chronically elevated as already noted. She also has a chronically resistant hypertension. She is clinically stable at this point with the medications given her with insulin adjustments on her home medication including increasing her hydralazine dose. She is stable at this point for discharge post dialysis. Encephalopathy primary care physician. EKG was unchanged. No further cardiac workup was needed. She is to follow with primary meter reader outpatient Discharge diagnosis * Atypical chest pain likely hypertensive induced * End-stage renal disease * Hypertensive urgency * Anemia of chronic disease * Diabetes type 2 * Chronic troponin elevation * Stable chronic congestive heart failure last known EF 45-50% with moderate mitral regurgitation, moderate to severe tricuspid regurgitation and severe pulmonary hypertension * Pulmonary hypertension-severe * Chronic diarrhea Disposition: DISCHARGED TO HOME OR SELFCARE Time spent for discharge: 35 MINS Core Measure Documentation - Palliative Care Palliative Care/ Comfort Measures: Not Applicable - Core Measures Any of the following diagnoses?: heart failure - VTE Discharge Requirements Deep Vein Thrombosis/Pulmonary Embolism Present on Admission: No - Heart Failure Discharge Requirements JUAN/ARB for LVSD if EF <40%: Yes Beta mic at discharge: Yes Exam - Physical Exam Narrative exam: VITAL SIGNS: Reviewed. GENERAL: The patient appeared well nourished and normally developed. Vital signs as documented. HEAD: No signs of head trauma. EYES: Pupils are equal. Extraocular motions intact. EARS: Hearing grossly intact. MOUTH: Oropharynx is normal. NECK: No adenopathy, no JVD. CHEST: Chest with clear breath sounds bilaterally. No wheezes, rales, or rhonchi. CARDIAC: Regular rate and rhythm. S1 and S2, without murmurs, gallops, or rubs. VASCULAR: No Edema. Peripheral pulses normal and equal in all extremities. ABDOMEN: Soft, without detectable tenderness. No sign of distention. No rebound or guarding, and no masses palpated. Bowel Sounds normal. MUSCULOSKELETAL: Good range of motion of all major joints. Extremities without clubbing, cyanosis or edema. NEUROLOGIC EXAM: Alert and oriented x 3. No focal sensory or strength deficits. Speech normal. Follows commands. PSYCHIATRIC: Mood normal. SKIN: No rash or lesions. - Constitutional Vitals: Temp Pulse Resp BP Pulse Ox 97.5 F L 72 20 184/77 94 06/30/16 04:35 06/30/16 04:35 06/30/16 04:35 06/30/16 04:35 06/30/16 04:35 Plan Activity: advance as tolerated, fall precautions Diet: low salt, renal Special Instructions: record daily BP diary, physical therapy, home health RN Additional Instructions: CONTINUE FOLLOW UP WITH RENAL AND PERSONAL TRADING FLOOR OPERATOR Follow up with: PRIMARY CARE, [Primary Care Provider] - 3-5 Days Forms: Discharge Signature Page Prescriptions: Hydralazine HCl [Apresoline TAB] 100 mg PO TID #90 tablet Loperamide [Imodium] 2 mg PO Q2H PRN #10 capsule PRN Reason: Diarrhea
--- NOTE | 2016-06-30 09:39 | Progress Note ---
Subjective Date of service: 06/30/16 Principal diagnosis: esrd Interval history: PATIENT HAS CHRONIC INTERMITTENT CHEST PAIN AND A CHRONICALLY RESISTANT HYPERTENSION HER ECG IS UNCHANGED FROM PREVIOUS AND HER TROPONIN ARE ALWAYS ABNORMALLY ELEVATED THERE ARE NO SIGNS OR SYMPTOMS TO SUGGEST ACUTE CORONARY SYNDROME NO FURTHER CARDIAC INTERVENTION IS NEEDED FOLLOW-UP WITH PRIMARY FORESTRY HUNTER OUTPATIENT History of present illness: Patient is a 71yr old female admitted for chest pain during HD yesterday. Her presenting ECG shows a sinus rhythm with Twave abnomalities and LVH. No significant change from prior ECG. Lab values resulted a troponin of 0.08 likely in the setting of renal disease. Cardiology consultation requested for chest pain. Patient has a cardiac history of CAD s/p 3 way CABG late 2011. The is a WHITE graft to the LAD, SVG to ALOM and SVG to RCA. Patient reports she follows with Dr Keating with [facility] on a regular basis. 6 months ago she had a persantine stress thallium that showed no ischemia. An echocardiogram done 3 months ago reports an ejection fraction 45-50%. Objective Vital Signs Temp Pulse Pulse Pulse Resp BP Pulse Ox 06/30/16 09:38 97.8 F 75 16 191/84 95 06/30/16 04:35 97.5 F L 72 20 184/77 94 06/30/16 01:48 158/80 06/30/16 00:32 98.2 F 68 18 193/79 95 06/29/16 23:11 98 06/29/16 21:34 98.3 F 68 18 180/81 94 06/29/16 16:43 98.2 F 68 20 180/77 98 06/29/16 12:49 58 L 06/29/16 11:40 97.6 F 65 20 153/69 96 06/29/16 10:00 97 - Physical Examination General: No Apparent Distress HEENT: Positive: PERRL Neck: Positive: trachea midline Cardiac: Positive: Reg Rate and Rhythm, S1/S2. Negative: S3 Lungs: Positive: Normal Exam - Labs and Meds Cardiac Enzymes 06/29/16 06/29/16 Range/Units 10:05 14:44 CK-MB (CK-2) 2.6 2.7 (0.0-4.0) ng/mL
[2016-06-30] MEDS: COREG PO SCH (10:00)
[2016-06-30] MEDS: APRESOLINE PO SCH (10:00)
[2016-06-30] MEDS: PROCARDIA XL PO SCH (15:35)
[2016-06-30] MEDS: PLAVIX PO SCH (15:36)
[2016-06-30] MEDS: PROTONIX PO SCH (15:36)
[2016-06-30] MEDS: LOVENOX SUB-Q SCH (15:36)
[2016-06-30] MEDS: ZESTRIL PO SCH (15:37)
[2016-06-30 17:31] VITALS: BP 170/68
== END 2016-06-30 16:15 | disposition home or self-care (01) | DRG 291 ==
LOC: ED 15:25 → 4A 18:21 → UNDODISIN 06-30 15:19
PROVIDERS: ADMIT Internal Medicine; ATTEND Internal Medicine
PROC: 5A1D60Z (ICD-10-PCS; principal; 2016-06-30)
PROC: 5A1D00Z (ICD-10-PCS; principal; 2016-06-30)
DX: I13.2 Hypertensive heart and chronic kidney disease with heart failure and with stage 5 chronic kidney disease, or end stage renal disease (principal); N18.6 End stage renal disease; I16.0 Hypertensive urgency; K21.9 Gastro-esophageal reflux disease without esophagitis; I25.10 Atherosclerotic heart disease of native coronary artery without angina pectoris; I50.9 Heart failure, unspecified; E11.22 Type 2 diabetes mellitus with diabetic chronic kidney disease; E78.00 Pure hypercholesterolemia, unspecified; D63.1 Anemia in chronic kidney disease; I27.2 Other secondary pulmonary hypertension; I34.0 Nonrheumatic mitral (valve) insufficiency; I07.1 Rheumatic tricuspid insufficiency; R79.89 Other specified abnormal findings of blood chemistry; Z82.49 Family history of ischemic heart disease and other diseases of the circulatory system; Z95.5 Presence of coronary angioplasty implant and graft; Z95.1 Presence of aortocoronary bypass graft; Z79.899 Other long term (current) drug therapy; I25.2 Old myocardial infarction; Z98.51 Tubal ligation status; Z90.710 Acquired absence of both cervix and uterus
CPT/HCPCS: 36415; 71020; 80048; 80061; 82550; 82553; 82962; 84484; 85025; 93005; 93010; 94760; 99285; 99406; A9270-GY; J0360; J1650; J7030

== ENCOUNTER 2016-11-08 08:57 | Emergency (ER) | payer MEDICARE ==
[~2016-11-08 08:57] MED LIST: ADRENALIN ONE
--- NOTE | 2016-11-08 09:32 | Emergency Department Report ---
ED CPR HPI - General Chief Complaint: Cardiac Arrest/CPR Stated Complaint: CARDIAC ARREST Time Seen by Provider: 11/08/16 09:30 Source: family, EMS (verbal report received from EMS.ems notes not available at time of chart dictation) Limitations: Altered Mental Status - History of Present Illness Initial Comments: This is a 71-year-old female. She is previously unknown to me. She is brought to the hospital by EMS as an out of hospital cardiac arrest. As per verbal report from EMS, the patient is found down, at home, via uncertain mechanism, for uncertain duration of time. EMS reports last known well time was yesterday. EMS reports normal fingerstick in the field. Presenting rhythm was pulseless electrical activity. EMS intubated and gave epinephrine in the field. Upon arrival, the patient remained pulseless. Her pupils were midpoint, and nonreactive to light. Patient received standard ACLS interventions and aggressive high-quality chest compressions. Serial bedside ultrasounds demonstrated no coronary ventricular activity, and cardiac standstill was noted on multiple bedside ultrasounds. Resuscitation efforts are terminated secondary to medical futility, prolonged downtime, lack of pulses. The patient's sister arrived shortly thereafter, and she was informed of the patient's demise. MD Complaint: found unresponsive -: unknown Place: home Initial Findings in the Field: PEA ROSC in the Field: No Treatments Prior to Arrival: intubation, chest compressions, epinephrine mgs # - Related Data Previous Rx's Medication Instructions Recorded Last Taken Type Clopidogrel Bisulfate [Plavix] 75 mg PO DAILY #30 tablet 05/18/15 1 Day Ago Rx Esomeprazole Magnesium [NexIUM] 40 mg PO QDAY #30 capsule. 05/18/15 1 Day Ago Rx NIFEdipine XL [Procardia Xl] 60 mg PO QDAY #30 tablet 05/29/15 1 Day Ago Rx AtorvaSTATin [Lipitor] 40 mg PO QHS #30 tablet 04/23/16 Unknown Rx Carvedilol [Coreg] 12.5 mg PO BID #60 tablet 04/23/16 Unknown Rx Lisinopril [Zestril TAB] 40 mg PO QDAY #30 tablet 04/23/16 Unknown Rx Hydralazine HCl [Apresoline TAB] 100 mg PO TID #90 tablet 06/30/16 Unknown Rx Loperamide [Imodium] 2 mg PO Q2H PRN #10 capsule 06/30/16 Unknown Rx Allergies Allergy/AdvReac Type Severity Reaction Status Date / Time meperidine HCl [From Demerol] Allergy Vomiting Verified 06/05/14 05:59 ED Review of Systems ROS: Stated complaint: CARDIAC ARREST Other details as noted in HPI Comment: Unobtainable due to pts medical conditions ED Past Medical Hx - Past Medical History Hx Hypertension: Yes Hx Heart Attack/AMI: Yes Hx Congestive Heart Failure: No Hx Diabetes: Yes Hx Deep Vein Thrombosis: No Hx Pulmonary Embolism: No Hx GERD: Yes Hx Liver Disease: No Hx Renal Disease: No Hx Sickle Cell Disease: No Hx Arthritis: No Hx Headaches / Migraines: Yes Hx Seizures: No Hx Kidney Stones: No Hx Asthma: No Hx COPD: No Hx Tuberculosis: No Hx Dementia: No Additional medical history: high cholesterol - Surgical History Hx Coronary Stent: No Hx Open Heart Surgery: Yes (CABG 03/24/12) Hx Pacemaker: No Hx Internal Defibrillator: No Hx Cholecystectomy: Yes Additional Surgical History: tubal ligation. hysterectomy. graft - RUE - Social History Smoking Status: Current Every Day Smoker - Medications Home Medications: Home Medications Medication Instructions Recorded Confirmed Last Taken Type Clopidogrel Bisulfate [Plavix] 75 mg PO DAILY #30 tablet 05/18/15 06/28/16 1 Day Ago Rx Esomeprazole Magnesium [NexIUM] 40 mg PO QDAY #30 capsule. 05/18/15 06/28/16 1 Day Ago Rx NIFEdipine XL [Procardia Xl] 60 mg PO QDAY #30 tablet 05/29/15 06/28/16 1 Day Ago Rx AtorvaSTATin [Lipitor] 40 mg PO QHS #30 tablet 04/23/16 06/28/16 Unknown Rx Carvedilol [Coreg] 12.5 mg PO BID #60 tablet 04/23/16 06/28/16 Unknown Rx Lisinopril [Zestril TAB] 40 mg PO QDAY #30 tablet 04/23/16 06/28/16 Unknown Rx Hydralazine HCl [Apresoline TAB] 100 mg PO TID #90 tablet 06/30/16 Unknown Rx Loperamide [Imodium] 2 mg PO Q2H PRN #10 capsule 06/30/16 Unknown Rx ED Physical Exam - General Limitations: Other (patient intubated, GCS of 3) General appearance: other (intubated GCS of 3) - Head Head exam: Present: atraumatic, normocephalic - Eye Eye exam: Present: other (pupils are midpoint, do not react to light) - ENT ENT exam: Present: other (endotracheal tube is noted in the oropharynx) - Neck Neck exam: Present: normal inspection - Respiratory Respiratory exam: Present: other (no breath sounds are appreciated, unless bag- valve-mask ventilation is applied.). Absent: respiratory distress - Cardiovascular Cardiovascular Exam: Present: other (no pulses are noted). Absent: systolic murmur, diastolic murmur, rubs, gallop - GI/Abdominal GI/Abdominal exam: Present: soft - External exam: Present: normal external exam - Extremities Exam Extremities exam: Present: normal inspection - Back Exam Back exam: Present: normal inspection - Neurological Exam Neurological exam: Present: other (intubated, nonverbal, GCS of 3) - Psychiatric Psychiatric exam: Present: other (nonverbal) - Skin Skin exam: Present: warm ED Course Vital Signs 11/08/16 09:04 Pulse Rate 0 L ED Medical Decision Making - Differential Diagnosis cardiac arrest, hyperkalemia, pulmonary embolus Critical care attestation.: If time is entered above; I have spent that time in minutes in the direct care of this critically ill patient, excluding procedure time. ED Disposition Clinical Impression: Cardiac arrest Disposition: DC-20 Is pt being admited?: No Does the pt Need Aspirin: No Condition: Undetermined Referrals: PRIMARY CARE,MD [Primary Care Provider] - 3-5 Days
== END 2016-11-08 15:28 ==
LOC: ED 08:57
DX: I46.9 Cardiac arrest, cause unspecified (principal); I25.2 Old myocardial infarction; K21.9 Gastro-esophageal reflux disease without esophagitis; G43.909 Migraine, unspecified, not intractable, without status migrainosus; E78.00 Pure hypercholesterolemia, unspecified; F17.200 Nicotine dependence, unspecified, uncomplicated; Z88.8 Allergy status to other drugs, medicaments and biological substances
CPT/HCPCS: 99285; J0171